=== PATIENT | male | born 1975 | race Caucasian/White ===

== ENCOUNTER 2022-04-12 07:35 | Outpatient (REF) | payer OTHER, SELFPAY ==
[2022-04-12 10:50] LABS: MANUAL DIFF FLAG NO
[2022-04-12 10:56] LABS: Basophils Percent Auto 0.3 % (0-2); Eosinophils Absolute Auto 0.2 X10*3/uL (0.0-0.4); Eosinophils Percent Auto 2.1 % (0-4); Hematocrit 46.3 % (42.0-52.0); Hemoglobin 14.6 g/dl (14.0-18.0); Imm Gran Abs Auto 0.03 X10*3/uL (0.00-0.03); Imm Gran Pct Auto 0.3 % (0.0-0.4); Lymphocytes Absolute Auto 2.1 X10*3/uL (1.2-4.9); Lymphocytes Percent Auto 19.7 % (20-40); Mean Corpuscular HGB Conc 31.5 g/dl (31.0-36.0); Mean Corpuscular Hemoglobin 26.3 pg (27.0-33.0); Mean Corpuscular Volume 83.3 fL (80.0-98.0); Monocytes Absolute Auto 0.7 X10*3/uL (0.1-1.2); Monocytes Percent Auto 6.5 % (2-11); Neutrophils Absolute Auto 7.6 x10*3/uL (2.0-8.3); Neutrophils Percent Auto 71.1 % (45-73); Platelet Count 253 X10*3/uL (160-400); Red Blood Count 5.56 X10*6/uL (4.60-5.80); Red Cell Distribution Width 13.4 % (11.0-16.0); White Blood Count 10.6 X10*3/uL (4.8-10.8)
[2022-04-12 11:05] LABS: Estimated Average Glucose 137 mg/dL; Hemoglobin A1c % 6.4 %
[2022-04-12 11:13] LABS: Alanine Aminotransferase 28 U/L (0-40); Albumin Level 4.2 g/dL (3.5-5.0); Alkaline Phosphatase 99 U/L (39-117); Anion Gap 15 (12-20); Aspartate Amino Transferase 17 U/L (5-37); Bilirubin Total 0.7 mg/dL (0.0-1.0); Blood Urea Nitrogen 19 mg/dL (9-16); Calcium 8.5 mg/dL (8.4-10.2); Carbon Dioxide 26 mmol/L (22-29); Chloride 103 mmol/L (96-108); Cholesterol 196 mg/dL; Estimated Glomerular Filt Rate > 60; Glucose Fasting 98 mg/dL (60-99); HDL Cholesterol 37 mg/dL; LDL Cholesterol Calculated 142 mg/dl; Potassium 4.4 mmol/L (3.3-5.1); Sodium 140 mmol/L (135-145); Triglycerides 87 mg/dL
[2022-04-12 11:29] LABS: Thyroid Stimulating Hormone 1.44 uIU/mL (0.32-4.0)
[2022-04-12 11:43] LABS: Creatinine Urine 294.71 mg/dL; Microalbum/Creatinine Ratio Ur 3.7 ug/mg cr
== END 2022-04-12 07:36 | disposition home or self-care (01) ==
LOC: HO.10HDL 07:35
PROVIDERS: Visit Provider Internal Medicine
DX: Z00.00 Encounter for general adult medical examination without abnormal findings (principal); E11.9 Type 2 diabetes mellitus without complications; E78.00 Pure hypercholesterolemia, unspecified; R13.19 Other dysphagia
CPT/HCPCS: 36415; 80053; 80061; 82043; 83036; 84443; 85025

== ENCOUNTER 2022-07-26 09:17 | Outpatient (REF) | payer OTHER, SELFPAY ==
[2022-07-26 10:58] LABS: Estimated Average Glucose 126 mg/dL
[2022-07-26 10:59] LABS: Alanine Aminotransferase 25 U/L (0-40); Albumin Level 3.9 g/dL (3.5-5.0); Alkaline Phosphatase 107 U/L (39-117); Anion Gap 14 (12-20); Aspartate Amino Transferase 18 U/L (5-37); Bilirubin Total 0.8 mg/dL (0.0-1.0); Blood Urea Nitrogen 13 mg/dL (9-16); Calcium 9.2 mg/dL (8.4-10.2); Carbon Dioxide 25 mmol/L (22-29); Chloride 107 mmol/L (96-108); Cholesterol 134 mg/dL; Estimated Glomerular Filt Rate > 60; Glucose Fasting 108 mg/dL (60-99); HDL Cholesterol 31 mg/dL; LDL Cholesterol Calculated 88 mg/dl; Potassium 4.1 mmol/L (3.3-5.1); Sodium 142 mmol/L (135-145); Total Protein 7.3 g/dL (6.5-8.0); Triglycerides 78 mg/dL
== END 2022-07-26 09:18 | disposition home or self-care (01) ==
LOC: HO.10HDL 09:17
PROVIDERS: Visit Provider Internal Medicine
DX: E11.9 Type 2 diabetes mellitus without complications (principal); E66.01 Morbid (severe) obesity due to excess calories; E78.00 Pure hypercholesterolemia, unspecified; I10 Essential (primary) hypertension
CPT/HCPCS: 36415; 80053; 80061; 83036

== ENCOUNTER → 2022-09-07 14:33 | Outpatient (BNVA) | payer OTHER, SELFPAY | PROVIDERS: Visit Provider Physician Assistant ==

== ENCOUNTER 2022-10-12 12:40 | Outpatient (AMB) | payer OTHER, SELFPAY ==
--- NOTE | 2022-10-12 12:46 | A.OFFVIS_ITS ---
Intake VS Expanded 10/12/22 12:53 Height 5 ft 9 in Weight 328 lb BMI 48.4 BP 143/92 H Blood Pressure Location Rt brachial Blood Pressure Position Sitting Pulse 73 Pulse Source Pulse Oximeter Temp 96.9 F Temperature Source Tympanic Pulse Oximetry 93 Oxygen Delivery Method Room Air Body Fat 140.0 Body Fat Percentage 42.7 Free Fat Mass 187.8 Muscle Mass 178.6 Visceral Mass 29.0 Water Mass 139.2 BMR 2,678 Intake Visit Reasons: (OV) RIGHT OF WAY AGENT BMI 48.8 SWL Supply Chain Assistant Required: Yes Supply Chain Assistant Language: Manager Logistic Name: KOBY ALFONSO Allergies No Known Allergies Allergy (Verified 10/12/22 12:58) Medication List - Last Reconciled 10/12/22 by SMITH Harding atorvastatin 20 mg PO BEDTIME ibuprofen 600 mg PO Q6H PRN metformin ER 500 mg PO BID omeprazole 40 mg PO DAILY HPI HPI Comments History of Present Illness Details Pt is here to start the [facility] [place] [place] Weight Management surgical weight loss program. He heard about our program from his friend and his PCP. His goal is to lose weight and achieve a healthy lifestyle as well as to improve, if not resolve, obesity related medical conditions, including HLD. He reports first being concerned about his weight 2-3 years ago, highest weight to date was 328. Current weight is 328 pounds with a BMI of 48.4. He has tried multiple methods of weight loss including fad diets without permanent results. He lives with family. 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 He wakes at:?[place], and goes to bed at?5 pm. Dinner is at 4 pm. Breakfast: sandwich, eggs HB AM snack: crackers, protein bar -[employer] [place] granola bar Lunch: subway PM snack: skip Dinner: rice and beans and meat After dinner: skip or crackers Other snacks: cake, candy Liquids: 32 oz water, no soda, OJ/iced tea1-2 bottles per day. Alcohol/marijuana/tobacco intake: 6-7 beers 2 x per month, no cannabis, no tobacco Exercise: none, no gym membership, no exercise equipment in home. Could join a gym GERD score: 11 KOURTNEY score: 0 ESS score: 4 QOL score: 78 Review of Systems Const All systems reviewed & are unremarkable except as noted in HPI and below Physical Exam Vital Signs: Last Vital Signs Temp 96.9 F 10/12/22 12:53 Pulse 73 10/12/22 12:53 BP 143/92 H 10/12/22 12:53 Pulse Ox 93 10/12/22 12:53 Oxygen Delivery Method Room Air 10/12/22 12:53 BMI result Body Mass Index 48.4 Const General: cooperative, healthy appearing and no acute distress Orientation/consciousness: patient oriented x3 HEENT Head: Yes normal to inspection Ears: hearing grossly normal bilaterally General nose exam: Normal external nose present Face and sinus: Yes normal facial exam Eyes General: appearance normal, both eyes and all related structures Resp Effort & Inspection: normal respiratory effort Auscultation: clear to auscultation bilaterally Cardio Rate: regular rate Rhythm: regular rhythm Heart sounds: S1 normal heart sound present and S2 normal heart sound present GI Inspection: Yes normal to inspection, No distended and Yes obesity Palpation (GI): Soft to palpation, nontender and no guarding Auscultation: normal bowel sounds Skin General skin exam: no rashes or lesions noted Neuro General: patient oriented x3 Extrem General: No edema Psych Appearance: grossly normal Mental Status: mental status grossly normal Speech and movement: Normal speech and movement present Affect: normal affect Attitude: cooperative Assessment & Plan Assessment & Plan (1) Morbid obesity: Code(s): E66.01 - Morbid (severe) obesity due to excess calories Plan: This is a?47 yo male who will start our SWL program to prepare for bariatric surgery.? Blood work, h pylori , CXR, ECG, Abd US and UGI have been ordered. He is being scheduled for RD and BH initial consultations. He will start SWL classes and watch the first three videos before his next appointment. ? Adequate sleep of 7-8 hours per night discussed, awakening at midnight and going to bed around 5 pm ? You already have a body composition scale so please be sure and check weight weekly. The best time to do this is first thing in the morning after going to the bathroom. 1. Nutritional counseling: Be sure to careful read the number of scoops per shake Start with 3 Premier Protein shakes ([employer], [employer], [employer]), (1 scoop in 8 oz low fat unsweetened almond milk or water each) First shake, (1 scoop in 8 oz low fat unsweetened almond milk or water) at 1am- 3am, Second shake, (2 scoops in 8 oz low fat unsweetened almond milk or water) at 5am-7am 1 protein bar (Zone Perfect bars at [employer], [employer], or [employer]) at 9am-11am. Another shake, (1 scoop in 8 oz low fat unsweetened almond milk or water) at 1pm-3pm. Dinner at 4pm (12 forks of protein and 12 forks of salad/vegetables). Meal to include lean meat (beef, fish, pork, turkey, chicken), cooked vegetables or a salad with olive oil and/or fruits (berries, pears, apples, kiwi). Avoid salt, breads, potatoes, rice, pasta, desserts. Try to drink 64 oz of water daily and avoid soda and juices. ?2. Each shake would be drunk slowly, like coffee in a period of 2 hours. ?3. Cut each bar in 4 pieces and eat each piece in 30 min ?to make each bar last 2 hours. ?4. I emphasized the importance of measuring accurately the food portion and measure it carefully when serving the food on the plate ?5. The meal portions include 12 full-size forks of meat and 12 full-size forks of salad. You always eat the meat portion but you can replace up to half of the forks of salad/vegetables with rice, potatoes or pasta, or a fruit ?if you like. The less you do it the better weight loss will be. ?6. One full-size fork is what can be scooped on the fork without falling aside and not what can be bit with the fork. Use regular forks like those you find in a typical restaurant. ?7.? Please send me weight measurements as soon as possible and then once a week. Always include your diet and exercise plan. Alternatively come weekly at the office for weight checks and send me the measurements. ?8. Exercise counseling: Begin by watching a stretching for beginners video. Start slowly and begin to stretch your muscles. You should do this before and after each exercise session to prevent injury. Please join [employer] gym near your home. Ask the software design manager or one of the trainers how to use the machines if you are unfamiliar with them. Start elliptical with a resistance of 2. Increase resistance by 1 every 3 min to your most comfortable resistance with a max resistance of 8. Reduce the resistance by 1 every 3 minutes back down to 2 and repeat cycles for 300 calories. Alternatively, start treadmill with a speed of 3.0 and incline of 0, increasing incline by 1 every 3 minutes to the highest comfortable level (max 6 for now) then decrease in the same fashion. Repeat process to a goal of 300 calories. Goal of 2000 calories burned or more weekly. You may also consider use of the stationary bike. The easiest would be to chose the fat-burn or interval training program on the machine and do this until you reach the 300 calorie goal. Alternatively, you can manually adjust the resistance in a similar fashion as mentioned above, (resistance of 2-8 with a goal speed of 12 mph). Tracking calories is essential. 9. Alternatively start walking outside daily, tracking calories with a goal of 300 calories per day, daily. You can download the jana boo-box which can track your time, distance and calories while walking outside. You press start in the jana when you start and then stop when you are finished. 10.? It is important to communicate by text weekly 11. Please get labs, EKG and chest X-Ray within 1 week. 12. Discussed and answered all questions regarding?obtained consent to participate in the [place] [facility]?Registry. 13. Please follow the diet plan exactly, without any change. If you do not like something about the plan or you feel hungry, you need to communicate with me so I can help you revise the plan. You should not change the plan yourself. Text me at [phone] 14. Goal is to lose at least 12 pounds in the first month 15. Goal is to lose 10% of your weight before surgery, which is about 32 lbs. Ultimate weight goal: 296 lbs before surgery 16. When you have your upper endoscopy by Dr Kuhn on 11/02/22, please ask him to take biopsy for H. Pylori and fax results to our office. Patient is morbidly obese and is not considered stable at this time.?I spent a total of 70 minutes reviewing/updating records, examining the patient and counseling the patient on weight management as detailed above. Orders: Orders Vitamin B12 and Folate Today E66.01 - Morbid (severe) obesity due to excess calories, E78.00 - Pure hypercholesterolemia, unspecified Comprehensive Met. Panel Today E66.01 - Morbid (severe) obesity due to excess calories, E78.00 - Pure hypercholesterolemia, unspecified C Reactive Protein Today E66.01 - Morbid (severe) obesity due to excess calories, E78.00 - Pure hypercholesterolemia, unspecified Ferritin Today E66.01 - Morbid (severe) obesity due to excess calories, E78.00 - Pure hypercholesterolemia, unspecified Hemoglobin A1c Today E66.01 - Morbid (severe) obesity due to excess calories, E78.00 - Pure hypercholesterolemia, unspecified Insulin Today E66.01 - Morbid (severe) obesity due to excess calories, E78.00 - Pure hypercholesterolemia, unspecified IRON PROFILE Today E66.01 - Morbid (severe) obesity due to excess calories, E78.00 - Pure hypercholesterolemia, unspecified Lipid Panel Today E66.01 - Morbid (severe) obesity due to excess calories, E78.00 - Pure hypercholesterolemia, unspecified PTHI Today E66.01 - Morbid (severe) obesity due to excess calories, E78.00 - Pure hypercholesterolemia, unspecified TSH reflex Free T4 Today E66.01 - Morbid (severe) obesity due to excess calories, E78.00 - Pure hypercholesterolemia, unspecified Vitamin A Today E66.01 - Morbid (severe) obesity due to excess calories, E78.00 - Pure hypercholesterolemia, unspecified Vitamin B1 Today E66.01 - Morbid (severe) obesity due to excess calories, E78.00 - Pure hypercholesterolemia, unspecified Vitamin D 25-OH Total Today E66.01 - Morbid (severe) obesity due to excess calories, E78.00 - Pure hypercholesterolemia, unspecified Zinc Today E66.01 - Morbid (severe) obesity due to excess calories, E78.00 - Pure hypercholesterolemia, unspecified ECG 12 lead EKG Today E66.01 - Morbid (severe) obesity due to excess calories, E78.00 - Pure hypercholesterolemia, unspecified FL upper GI w air Today E66.01 - Morbid (severe) obesity due to excess calories, E78.00 - Pure hypercholesterolemia, unspecified Complete Blood Count Auto Diff Today E66.01 - Morbid (severe) obesity due to excess calories, E78.00 - Pure hypercholesterolemia, unspecified H Pylori Breath Test Today E66.01 - Morbid (severe) obesity due to excess calories, E78.00 - Pure hypercholesterolemia, unspecified US abdomen comp w elastography Today E66.01 - Morbid (severe) obesity due to excess calories, E78.00 - Pure hypercholesterolemia, unspecified XR chest 2V Today E66.01 - Morbid (severe) obesity due to excess calories, E78.00 - Pure hypercholesterolemia, unspecified Referrals Behavioral Health Referral E66.01 - Morbid (severe) obesity due to excess calories, E78.00 - Pure hypercholesterolemia, unspecified Nutrition/Dietitian Referral E66.01 - Morbid (severe) obesity due to excess calories, E78.00 - Pure hypercholesterolemia, unspecified Coding Level of Care Code New Pt Level 5 (85664) Diagnoses Morbid obesity E66.01 Time Spent (min) 70
[2022-10-12 12:53] VITALS: BP 143/92; PULSE 73; TEMP 36.1; O2SAT 93; BMI 48.4
== END 2022-10-12 14:53 | disposition home or self-care (01) ==
PROVIDERS: Visit Provider Physician Assistant Surgical
DX: E66.01 Morbid (severe) obesity due to excess calories (principal); Z68.42 Body mass index [BMI] 45.0-49.9, adult
CPT/HCPCS: 99205

== ENCOUNTER → 2022-10-12 12:40 | Outpatient (BNVA) | payer OTHER, SELFPAY | PROVIDERS: Visit Provider Physician Assistant Surgical ==

== ENCOUNTER 2022-10-28 08:17 | Outpatient (REF) | payer OTHER, SELFPAY ==
--- NOTE | ~2022-10-28 | XR_ITS ---
EXAMINATION: XR CHEST CLINICAL INFORMATION: Reason for Exam E66.01 - Morbid (severe) obesity due to excess calories COMPARISON: None TECHNIQUE: 2 views of the chest FINDINGS: Lines and tubes: None. Clear lungs. No pleural effusion. No pneumothorax. Normal cardiomediastinal silhouette. XR/XR chest 2V IMPRESSION: * Clear lungs.
--- NOTE | 2022-10-28 08:22 | ECG_ITS ---
Test Reason : e66.01 Blood Pressure : / mmHG Vent. Rate : 061 BPM Atrial Rate : 061 BPM P-R Int : 174 ms QRS Dur : 096 ms QT Int : 414 ms P-R-T Axes : 048 015 023 degrees QTc Int : 416 ms Normal sinus rhythm Normal ECG No previous ECGs available Referred By: Amrit Zambrano Electronically Signed By:JUANITO FORD
[2022-10-28 08:55] LABS: MANUAL DIFF FLAG NO
[2022-10-28 10:31] LABS: Basophils Percent Auto 0.3 % (0-2); Eosinophils Absolute Auto 0.1 X10*3/uL (0.0-0.4); Eosinophils Percent Auto 1.4 % (0-4); Hematocrit 45.5 % (42.0-52.0); Hemoglobin 14.5 g/dl (14.0-18.0); Imm Gran Abs Auto 0.04 X10*3/uL (0.00-0.03); Imm Gran Pct Auto 0.4 % (0.0-0.4); Lymphocytes Absolute Auto 1.6 X10*3/uL (1.2-4.9); Lymphocytes Percent Auto 17.6 % (20-40); Mean Corpuscular HGB Conc 31.9 g/dl (31.0-36.0); Mean Corpuscular Hemoglobin 26.3 pg (27.0-33.0); Mean Corpuscular Volume 82.4 fL (80.0-98.0); Mean Platelet Volume 10.2 fL (9.4-12.4); Monocytes Absolute Auto 0.6 X10*3/uL (0.1-1.2); Monocytes Percent Auto 6.3 % (2-11); Neutrophils Absolute Auto 6.6 x10*3/uL (2.0-8.3); Platelet Count 263 X10*3/uL (160-400); Red Blood Count 5.52 X10*6/uL (4.60-5.80); Red Cell Distribution Width 13.3 % (11.0-16.0)
[2022-10-28 10:40] LABS: Estimated Average Glucose 123 mg/dL; Hemoglobin A1C 135.2478 umol/L; Hemoglobin A1c % 5.9 % (<6.0)
[2022-10-28 11:13] LABS: Alanine Aminotransferase 53 U/L (0-40); Albumin Level 4.3 g/dL (3.5-5.0); Alkaline Phosphatase 95 U/L (39-117); Anion Gap 13 (12-20); Aspartate Amino Transferase 35 U/L (5-37); Bilirubin Total 0.6 mg/dL (0.0-1.0); Blood Urea Nitrogen 17 mg/dL (9-16); C Reactive Protein 2.58 mg/dL (< or = 0.50); Calcium 9.4 mg/dL (8.4-10.2); Carbon Dioxide 25 mmol/L (22-29); Chloride 106 mmol/L (96-108); Cholesterol 130 mg/dL (<200); Estimated Glomerular Filt Rate > 60; Glucose Random 93 mg/dL (60-115); HDL Cholesterol 23 mg/dL (>40); Iron 52 mcg/dL (45-160); LDL Cholesterol Calculated 94 mg/dL (<100); Percent Iron Saturation 18 % (15-50); Potassium 3.9 mmol/L (3.3-5.1); Sodium 140 mmol/L (135-145); Total Iron Binding Capacity 284 mcg/dL (228-428); Total Protein 7.7 g/dL (6.5-8.0); Triglycerides 68 mg/dL (<150); Unsaturated Iron Binding 232 ug/dL
[2022-10-28 11:29] LABS: Folate 10.2 ng/mL (> or = 4.0); Vitamin B12 473 pg/mL (200-900)
[2022-10-28 11:31] LABS: Ferritin 185 ng/mL (20-250); Insulin 25 uU/mL (2-29); TSH reflex Free T4 0.85 uIU/mL (0.32-4.0); Vitamin D 25-OH Total 23.6 ng/mL (>30)
[2022-10-31 14:38] LABS: Calcium (PTHI) 9.4 mg/dL (8.6-10.3); PTHI 50 pg/mL (16-77)
[2022-11-01 03:34] LABS: Zinc 76 mcg/dL (60-130)
[2022-11-04 17:13] LABS: Vitamin B1 <6 nmol/L (8-30)
== END 2022-10-28 08:18 | disposition home or self-care (01) ==
LOC: HO.XRAY 08:17
PROVIDERS: PCP Internal Medicine; Visit Provider Physician Assistant Surgical
DX: E66.01 Morbid (severe) obesity due to excess calories (principal); E78.00 Pure hypercholesterolemia, unspecified
CPT/HCPCS: 36415; 71046; 80053; 80061; 82306; 82607; 82728; 82746; 83036; 83525; 83540; 83970; 84425; 84443; 84590; 84630; 85025; 86140; 93005; 97802

== ENCOUNTER 2022-10-28 12:53 | Outpatient (AMB) | payer OTHER, SELFPAY ==
--- NOTE | 2022-10-28 13:13 | MHC.AMNUTRGE ---
Intake Intake Visit Reasons: (TV) Initial Nutrition SWL Private Branch Exchange Service Adviser Required: Yes Private Branch Exchange Service Adviser Name: Kenna [id number] Information Interpreted: non-clinical & clinical Allergies No Known Allergies Allergy (Verified 10/12/22 12:58) HPI Nutrition Presentation Reason for consult elevated BMI Diet Assmnt Details He enjoys the bars and the shakes, using premier protein shakes and Zone perfect bars 1 scoop powder and 8oz almond milk unsweetened 2 scoops in water 1 scoop in water salad, vegetables, meat Example last might ate ribs (eats once per week) educated pt on lean proteins, sent recipe book in [facility] as well. pt shared with staff he was very nervous for todays appt. superintendent drivers, mainly in [facility] Did not have time today to tlak about classes or exercise Dietary counseling reduction Who buys your food self Who prepares/cooks your food self Meal frequency regular: lunch (sandwich at subway, rice, beans meat ), dinner and snacks Lifestyle Eating out 4 or more times/week Food frequency Fruit: daily, Vegetables: daily, Grains/pasta/breads/cereal (carbs): daily, Meats/poultry/fish (protein): daily, Meat substitutes/nuts/seeds/legumes: daily, Processed foods/meats: daily, Restaurants/fast foods: several times weekly, Desserts/sweets: daily (desserts, biscuits ), Water: daily, Soda: never, Juice: daily and Coffee: daily Diagnosis Nutrition problem #1 overweight/obesity As related to (etiology) #1 excess energy intake and physical inactivity As evidenced by (sign/symptom) #1 high BMI Monitoring/Goals Nutrition problem monitoring total energy intake, level of knowledge/skill, total PRO intake, total CHO intake and weight Outcome progress progressing Learning/Education Readiness to learn good Stages of change action Educational materials provided Yes Most Recent Diabetes Results: Microalb/Creat Ratio 3.7 ug/mg cr 04/12/22 Cholesterol 130 mg/dL (<200) 10/28/22 HDL Cholesterol 23 mg/dL (>40) L 10/28/22 Triglycerides 68 mg/dL (<150) 10/28/22 Creatinine 0.79 mg/dL (0.5-1.4) 10/28/22 Blood Urea Nitrogen 17 mg/dL (9-16) H 10/28/22 Sodium 140 mmol/L (135-145) 10/28/22 Potassium 3.9 mmol/L (3.3-5.1) 10/28/22 Chloride 106 mmol/L (96-108) 10/28/22 Carbon Dioxide 25 mmol/L (22-29) 10/28/22 Calcium 9.4 mg/dL (8.4-10.2) 10/28/22 AST 35 U/L (5-37) 10/28/22 ALT 53 U/L (0-40) H 10/28/22 Total Protein 7.7 g/dL (6.5-8.0) 10/28/22 Albumin 4.3 g/dL (3.5-5.0) 10/28/22 Assessment & Plan Assessment & Plan (1) Morbid obesity: Code(s): E66.01 - Morbid (severe) obesity due to excess calories Patient Instructions: pt is doing very well. he will continue with his plan. we talked about doing 2 shakes with 2 scoops each on the days he wakes up late and misses the first. Will follow up again 12/01 3pm TV Telehealth Telehealth Location of provider rendering services: practice address Location of patient: address on file Patient Identification confirmed using: Name, : Yes Telehealth method: voice only Patient verbally consented to treatment: Yes Patient verbally consented to billing insurance company: Yes Patient informed of any privacy concerns related to visit: Yes Minutes spent on Phone/Video with Pt.: 45 Coding Level of Care Code Nutr Indiv Intake (51800) Diagnoses Morbid obesity E66.01 Time Spent (min) 45
== END 2022-10-28 13:43 | disposition home or self-care (01) ==
PROVIDERS: Referring Provider Physician Assistant Surgical; Visit Provider Dietitian, Registered
DX: E66.01 Morbid (severe) obesity due to excess calories (principal)

== ENCOUNTER 2022-10-31 13:29 | Outpatient (REF) | payer OTHER, SELFPAY ==
[2022-11-04 21:43] LABS: Vitamin A 27 mcg/dL (38-98)
== END 2022-10-31 13:30 | disposition home or self-care (01) ==
LOC: HO.LAB 13:29
PROVIDERS: PCP Internal Medicine; Visit Provider Physician Assistant Surgical
DX: E66.01 Morbid (severe) obesity due to excess calories (principal); E78.00 Pure hypercholesterolemia, unspecified
CPT/HCPCS: 36415; 84590

== ENCOUNTER 2022-11-02 06:53 | Day surgery (SDC) | payer OTHER, SELFPAY ==
--- NOTE | 2022-11-01 09:10 | P.CONAN_ITS ---
Documented by User: Stephanie Tarango NP 11/01/22 09:11 HPI - Anesthesia Eval Consult details Narrative: 47yo M for Upper Endoscopy with Balloon Dilitation, Colonoscopy PMF Active Problems Active Problems: All Active Problems (Updated 11/01/22 @ 06:52 by Erin Rai RN) Asthma (Acute) Hypercholesterolemia (Acute) Morbid obesity (Acute) Past Medical History Medical History (Updated 11/02/22 @ 07:49 by Razia Gutierrez RN) GERD (gastroesophageal reflux disease) Hyperlipidemia Asthma Surgical History Surgical History (Updated 11/02/22 @ 08:33 by Razia Gutierrez RN) Hx of wisdom tooth extraction Social History Social History Patient Tobacco Use Status: Never used Tobacco Are you DNR?: No Advance Directives: No Advance Directives Information Provided: Yes Recently lost weight without trying: No Nutrition Risks: No Nutritional Risk Meds Allergies Allergy/AdvReac Type Severity Reaction Status Date / Time Penicillins Allergy Unknown Verified 11/02/22 07:08 seafood Allergy Unknown Verified 11/02/22 07:08 Home Medications Medication Instructions Recorded Confirmed Last Taken Type atorvastatin 20 mg tablet 20 mg PO BEDTIME 10/12/22 11/02/22 Unknown History ibuprofen 600 mg tablet 600 mg PO Q6H PRN Pain, Mild 10/12/22 11/02/22 10/17/22 History metformin 500 mg tablet,extended 500 mg PO BID 10/12/22 11/02/22 Unknown History release 24 hr omeprazole 40 mg capsule,delayed 40 mg PO DAILY 10/12/22 11/02/22 Unknown History release Exam Exam Date and Time: November 01, 2022 0910 Pertinent Lab Results Pertinent Lab Results: Laboratory Tests 10/28/22 08:50 WBC 9.0 Hgb 14.5 Hct 45.5 Plt Count 263 Sodium 140 Potassium 3.9 Chloride 106 Carbon Dioxide 25 BUN 17 H Creatinine 0.79 Narrative Narrative: EKG 10/2022 Vent. Rate : 061 BPM Atrial Rate : 061 BPM P-R Int : 174 ms QRS Dur : 096 ms QT Int : 414 ms P-R-T Axes : 048 015 023 degrees QTc Int : 416 ms Normal sinus rhythm Normal ECG No previous ECGs available Assessment and Plan Assessment Anesthesia Assessment: Chart Reviewed Documented by User: Barrington Rojas MD 11/02/22 08:58 [facility] Past Medical History Medical History (Updated 11/02/22 @ 07:49 by Razia Gutierrez RN) GERD (gastroesophageal reflux disease) Hyperlipidemia Asthma Family History Family history of problems with anesthesia: No Surgical History Surgical History (Updated 11/02/22 @ 08:33 by Razia Gutierrez RN) Hx of wisdom tooth extraction History of Problems with Anesthesia: No Social History Social History Patient Tobacco Use Status: Never used Tobacco Are you DNR?: No Advance Directives: No Advance Directives Information Provided: Yes Recently lost weight without trying: No Nutrition Risks: No Nutritional Risk Meds Allergies Allergy/AdvReac Type Severity Reaction Status Date / Time Penicillins Allergy Unknown Verified 11/02/22 07:08 seafood Allergy Unknown Verified 11/02/22 07:08 Home Medications Medication Instructions Recorded Confirmed Last Taken Type atorvastatin 20 mg tablet 20 mg PO BEDTIME 10/12/22 11/02/22 Unknown History ibuprofen 600 mg tablet 600 mg PO Q6H PRN Pain, Mild 10/12/22 11/02/22 10/17/22 History metformin 500 mg tablet,extended 500 mg PO BID 10/12/22 11/02/22 Unknown History release 24 hr omeprazole 40 mg capsule,delayed 40 mg PO DAILY 10/12/22 11/02/22 Unknown History release Exam Airway Mallampati Class: I TM Dist: >3cm Neck ROM: Limited Heart: rrr Lungs: cta Assessment and Plan Assessment Anesthesia Assessment: Anesthesia Plan Discussed Final Anesthetic Review Family History of Problems with Anesthesia: No History of Problems with Anesthesia: No NPO: Yes ASA Class: III Final Preanesthetic Review: No Changes in Pt Med Stat, Meds/Allgs Chart Reviewed, Consent Obtained/Reviewed and Anes Risks/Benef Reviewed Patient Risk: Intermediate Procedure Risk: Intermediate Assessment/Block/Sedation in SS: Assess/Block/Sedation-SS Anesthetic Plan Anesthetic Plan: MAC: and Agree w/ Assess. and Plan Disposition: Standard PACU
[2022-11-02 07:35] VITALS: BMI 48.1
[2022-11-02 07:55] VITALS: BP 127/83; PULSE 62; RESP 20; TEMP 36.1; O2SAT 97
[2022-11-02] MEDS: Lactated Ringers 1,000 ML 100 ML IVCONT (08:07)
--- NOTE | 2022-11-02 10:14 | P.BOP_ITS ---
Brief Operative Note Date of Service: 11/02/22 Pre-op diagnosis: GERD, Dysphagia, Screening Post-op diagnosis: other (Colon polyps, Duodenitis, Gastritis, Hiatal hernia, GERD) Procedure: Colonoscopy to the cecum with bx/removal of polyps, EGD with biopsies and Balloon Dilation with an 18 to 19 to 20mm balloon Surgeon: Emanuel Kuhn Anesthesia: MAC Was an Professor Of Poultry Science used for this Procedure?: No Estimated blood loss (mL): 2.0 Pathology: other (A. Transverse colon polyp B. Polyp at 20cm C. Gastric antrum D. EG Junction at 38cm) Condition: stable Disposition: PACU
[2022-11-02 10:15] VITALS: BP 128/82; PULSE 55; RESP 16; TEMP 36.1; O2SAT 97
[2022-11-02 10:30] VITALS: BP 128/82; PULSE 59; RESP 17; TEMP 36.7; O2SAT 97
--- NOTE | 2022-11-02 10:43 | OP_ITS ---
DATE OF SERVICE: 11/02/2022 SURGEON: Emanuel Kuhn MD INDICATIONS: The patient presents for evaluation of gastroesophageal reflux, dysphagia, and colorectal cancer screening. Full consent has been obtained from him for both procedures, including risks of bleeding and perforation. PREOPERATIVE DIAGNOSIS: POSTOPERATIVE DIAGNOSIS: PROCEDURE PERFORMED: Esophagogastroduodenoscopy with biopsies and balloon dilation, and colonoscopy to the cecum with biopsy and removal of polyps. ESTIMATED BLOOD LOSS: COMPLICATIONS: ANESTHESIA: Monitored anesthesia care. ASSISTANTS: SPECIMENS: PREOPERATIVE DIAGNOSES: Gastroesophageal reflux, dysphagia, colorectal cancer screening. POSTOPERATIVE DIAGNOSES: Gastroesophageal reflux, dysphagia, colorectal cancer screening, small colon polyps, internal hemorrhoids, duodenitis, gastritis, hiatal hernia, gastroesophageal reflux. DESCRIPTION OF PROCEDURE: The patient was placed in the left lateral decubitus position. The digital rectal exam revealed no abnormalities. The Olympus video pediatric colonoscope was entered into the rectum and advanced easily to the cecum. Once in the cecum, I did identify normal-appearing cecal pouch with appendiceal orifice and a normal-appearing ileocecal valve. The entire cecum and ileocecal valve appeared normal. The scope was slowly withdrawn assessing all mucosal surfaces carefully. Preparation was excellent. In the transverse colon and at 20 cm were less than 5 mm polyps, which were each biopsied and completely removed with a cold biopsy forceps. I did not visualize any other polyps, colitis, nor angiodysplasia. In the rectum, scope was retroflexed visualizing small internal hemorrhoids, but no other pathology. The rectal mucosa appeared normal. The scope was straightened and withdrawn from the patient. He was then turned around for the upper endoscopy. The Olympus video gastroscope was passed in the posterior oropharynx and upper esophagus under direct vision. The scope was passed slowly into the distal esophagus. The gastroesophageal junction appeared at 38 cm. There was some slight irregularity consistent with reflux but no evidence of any esophagitis nor definitive [place] mucosa. There was no evidence of any stricture. The scope entered the stomach. There was a small hiatal hernia. The scope was advanced to the pylorus, and the duodenum was cannulated to the descending portion. There was a mild duodenitis in the duodenal bulb, but otherwise the duodenum appeared normal to the 2nd and 3rd portions. The scope was withdrawn back in the stomach. The gastric antrum had some areas of gastritis with edema and erythema, but no erosions nor ulceration. There was good peristalsis. Biopsies were obtained from the gastric antrum. The scope was retroflexed visualizing the proximal stomach carefully, which appeared normal, without any sign of mass or ulceration. The scope was straightened. The scope was withdrawn back to the esophagus. Given his symptomatology, I did use a [employer] incremental balloon to dilate the gastroesophageal junction from 18 mm to 19 mm to 20 mm at the recommended pressures for between 30 and 60 seconds each. Post dilation, there was a small amount heme noted but no real disruption of the gastroesophageal junction. I did obtain biopsies at the GE junction as well. Proximal to 38 cm, the esophageal mucosa appeared normal. The scope was withdrawn from the patient. He tolerated both procedures well and was returned to the recovery area in stable condition. IMPRESSION: 1. Small hiatal hernia, gastroesophageal reflux. 2. Gastritis. 3. Duodenitis. 4. Colon polyps. 5. Internal hemorrhoids. PLAN: The results of the pathology will be checked. If the colon polyps are tubular adenomas, I would recommend a followup colonoscopy in 5 years. If they are both hyperplastic, I would recommend a followup coloscopy in 10 years. He was advised not to use any aspirin or NSAIDs for 1 week. He was advised to continue the current regimen of omeprazole 40 mg daily as he does report that is working well for him in regard to his reflux symptoms. He will see me on a p.r.n. basis but was advised to call sooner if there are any problems or questions. This has been discussed with his . MD RUFUS Muse/SHENG / [phone]
== END 2022-11-02 10:58 | disposition home or self-care (01) ==
PROVIDERS: PCP Internal Medicine; Visit Provider Internal Medicine
PROC: (CPT 45380; principal; 2022-11-02 08:40)
PROC: 0DJD8ZZ Inspection of Lower Intestinal Tract, Via Natural or Artificial Opening Endoscopic (ICD-10-PCS; CPT 45378; 2022-11-02 08:40)
DX: Z12.11 Encounter for screening for malignant neoplasm of colon (principal); K63.5 Polyp of colon; K64.8 Other hemorrhoids; R13.19 Other dysphagia; K21.9 Gastro-esophageal reflux disease without esophagitis; K29.50 Unspecified chronic gastritis without bleeding; K29.80 Duodenitis without bleeding; K44.9 Diaphragmatic hernia without obstruction or gangrene; E78.5 Hyperlipidemia, unspecified; J45.909 Unspecified asthma, uncomplicated; Z79.899 Other long term (current) drug therapy; Z79.84 Long term (current) use of oral hypoglycemic drugs; Z79.1 Long term (current) use of non-steroidal anti-inflammatories (NSAID); Z88.0 Allergy status to penicillin
CPT/HCPCS: 45380; 43249; 43239; 88305; 88342; C1726

== ENCOUNTER 2022-11-09 12:29 | Outpatient (AMB) | payer OTHER, SELFPAY ==
--- NOTE | 2022-11-09 13:17 | A.OFFVIS_ITS ---
Intake VS Expanded 11/09/22 13:32 BP 134/75 Blood Pressure Location Rt brachial Blood Pressure Position Sitting Pulse 67 Pulse Source Pulse Oximeter Temp 98.2 F Temperature Source Temporal Artery Scan Pulse Oximetry 98 Oxygen Delivery Method Room Air Height 5 ft 9 in Weight 308 lb 9.6 oz BMI 45.6 Body Fat % 44.2 Body Fat Mass 136.4 Fat Free Mass 172.2 Visceral Fat Rating 14.0 Body Water % 39.8 Body Water Mass 122.8 Muscle Mass/Score 163.4 Basal Metabolic Rate/Score 2,443 Intake Visit Reasons: (OV) F/U SWL Allergies Penicillins Allergy (Verified 11/09/22 13:30) Unknown seafood Allergy (Verified 11/09/22 13:30) Unknown HPI HPI Comments History of Present Illness Details The patient is a pleasant 47 year old male who returns to the clinic for pre-operative surgical weight loss management. They were last seen in the office on 10/12/22, recorded weight at that time was 328 pounds, with a BMI of 48.4. Today's weight is 308.6 pounds and BMI is 45.6. There has been a weight loss of 19.4 pounds since initiating the surgical weight loss program on 10/12/22 with a total body weight loss of 5.9 %. Pre op work up completed as follows: SWL classes:? 03/16 BH appts: 11/17/22 ? ? RD appts: f/u 12/01/22 Labs: 10/28/22-low A, B1, D, B12:473 H. pylori: not yet done CXR: 10/28/22-nad EK10/28/22-normal ABD U/S: 11/22/22 UGI: 12/22/22 The patient reports he was started on Losartan 50 mg daily by his pcp. He states he is concerned for low BP and states his BP is 130s/70s at home. He will discuss w his PCP. Does not love the bars Current meal plan includes: 3 [employer] Protein shakes ([employer], [employer], [employer]), (1 scoop in 8 oz low fat unsweetened almond milk or water each) First shake, (1 scoop in 8 oz low fat unsweetened almond milk or water) at 1am- 3am, Second shake, (1 scoops in 8 oz low fat unsweetened almond milk or water) at 5am-7am 1 protein bar ([employer] bars at [employer], [employer], or [employer]) at 9am-11am. Another shake, (1 scoop in 8 oz low fat unsweetened almond milk or water) at 1pm-3pm. Dinner at 4pm (12 forks of protein and 12 forks of salad/vegetables). Drinking 64-80 oz of water Current exercise plan includes: walking 2-3 x per week PFSH Medical History GERD (gastroesophageal reflux disease) Hyperlipidemia Asthma Surgical History Hx of wisdom tooth extraction Social History Alcohol intake: current Alcohol intake frequency: holidays/special occasions only Patient Tobacco Use Status: Never used Tobacco Review of Systems Const All systems reviewed & are unremarkable except as noted in HPI and below Physical Exam Vital Signs: Last Vital Signs Temp 98.2 F 11/09/22 13:32 Pulse 67 11/09/22 13:32 BP 134/75 11/09/22 13:32 Pulse Ox 98 11/09/22 13:32 Oxygen Delivery Method Room Air 11/09/22 13:32 BMI result Body Mass Index 45.6 Const General: healthy appearing and no acute distress Resp Effort & Inspection: normal respiratory effort Auscultation: clear to auscultation bilaterally Cardio Rate: regular rate Rhythm: regular rhythm GI Auscultation: normal bowel sounds Extrem General: Yes normal to inspection Assessment & Plan Assessment & Plan (1) Morbid obesity: Code(s): E66.01 - Morbid (severe) obesity due to excess calories Plan: Making good progress, Continue 3 shakes w 1 scoop each. He had decreased by 1 scoop on his own. Discussed not to do that. Plans on getting treadmill and will follow directions in original emal for that Reminded of upcoming apts RTC 3 weeks Coding Level of Care Code Est Pt Level 3 (16074) Diagnoses Morbid obesity E66.01
[2022-11-09 13:32] VITALS: BP 134/75; PULSE 67; TEMP 36.8; O2SAT 98; BMI 45.6
== END 2022-11-09 14:06 | disposition home or self-care (01) ==
PROVIDERS: Visit Provider Physician Assistant Surgical
DX: E66.01 Morbid (severe) obesity due to excess calories (principal)
CPT/HCPCS: 99213

== ENCOUNTER → 2022-11-09 12:29 | Outpatient (BNVA) | payer OTHER, SELFPAY | PROVIDERS: Visit Provider Physician Assistant Surgical ==

== ENCOUNTER 2022-11-22 08:48 | Outpatient (REF) | payer OTHER, SELFPAY ==
--- NOTE | ~2022-11-22 | US_ITS ---
EXAMINATION: US COMPLETE ABDOMEN WITH LIVER ELASTOGRAPHY CLINICAL INFORMATION: Morbid obesity. COMPARISON: None available. TECHNIQUE: Real-time imaging of the abdominal viscera. Noninvasive ultrasound liver fibrosis assessment is performed using Pro ElastPQ point quantification shear wave elastography (2D-SWE) with a C5-2 MHz transducer. Multiple elastography samples are obtained. FINDINGS: PANCREAS: Limited. The visualized pancreatic head and body are normal in appearance. The remainder of the pancreas is obscured from visualization by the overlying bowel gas. ABDOMINAL AORTA: The proximal, middle, and distal aortic segments are normal in caliber. INFERIOR VENA CAVA: Visualized portions are normal. LIVER: The liver demonstrates normal size, contour and increased echogenicity. No focal lesion or intrahepatic biliary duct dilatation. The right lobe measures 18.8 cm in length. The left lobe measures 10.1 cm in length. Portal flow is towards the liver (hepatopetal). Shear wave liver elastography median stiffness is 1.64 m/s (reference: normal median stiffness is 1.3 m/s or less). IQR/median stiffness to assess sampling precision is 0.10 (reference: good quality data set is IQR/median stiffness of 0.15 or less). GALLBLADDER: Normal. The gallbladder is physiologically distended without evidence of stones, sludge, polyps, wall thickening or pericholecystic fluid. COMMON BILE DUCT: Normal in caliber measuring 0.3 cm in diameter. RIGHT KIDNEY: Normal. No hydronephrosis. No renal calculi or focal parenchymal lesions. The kidney measures 10.6 cm in maximum dimension. LEFT KIDNEY: Normal. No hydronephrosis. No renal calculi or focal parenchymal lesions. The kidney measures 11.5 cm in maximum dimension. SPLEEN: Normal. The spleen measures 11.0 cm in maximum dimension. FREE FLUID: None. US/US abdomen comp w elastography IMPRESSION: 1. There is hepatomegaly. 2. There is generalized increase in hepatic echotexture, consistent with fatty infiltration or hepatocellular disease. Please correlate clinically. No focal hepatic mass or intrahepatic biliary dilatation is seen. 3. Liver elastography: In the absence of other known clinical signs, measurements rule out compensated advanced chronic liver disease. If there are known clinical signs, further testing may be needed for confirmation. 4. Technically limited ultrasound examination of the pancreatic tail. REFERENCE: Society of Radiologists in Ultrasound Liver Stiffness Thresholds (2020): LIVER STIFFNESS THRESHOLDS: *Liver Stiffness equal or less than 1.3 m/s: High probability of being normal. *Liver Stiffness less than 1.7 m/s: In the absence of other known clinical signs, rules out compensated advanced chronic liver disease. *Liver Stiffness 1.7-2.1 m/s: Suggestive of compensated advanced chronic liver disease but need further test for confirmation. *Liver Stiffness over 2.1 m/s: Rules in compensated advanced chronic liver disease. *Liver Stiffness over 2.4 m/s: Suggestive of clinically significant portal hypertension. QUALITY OF DATA SET: *IQR/Median value equal or less than 0.15 implies a quality data set. *IQR/Median value over 0.15 implies a poor quality data set. SIGNIFICANT CHANGE FROM PRIOR EXAM: Significant change if liver stiffness measurement is 10% or greater from prior exam. OTHER CONSIDERATIONS: The stage of liver fibrosis may be overestimated in the setting of acute hepatitis, liver inflammation, elevated liver function tests, hepatic vascular congestion, obstructive cholestasis, non-fasting state, and infiltrative diseases such as amyloidosis and lymphoma. In some patients with NAFLD, the liver stiffness thresholds for compensated advanced chronic liver disease may be lower. In causes other than viral hepatitis and NAFLD, liver stiffness thresholds are not well established.
== END 2022-11-22 08:49 | disposition home or self-care (01) ==
LOC: HO.US 08:48
PROVIDERS: PCP Internal Medicine; Visit Provider Physician Assistant Surgical
DX: E66.01 Morbid (severe) obesity due to excess calories (principal); E78.00 Pure hypercholesterolemia, unspecified
CPT/HCPCS: 76705; 76981

== ENCOUNTER 2023-04-07 07:29 | Outpatient (REF) | payer OTHER, SELFPAY ==
[2023-04-07 11:43] LABS: Estimated Average Glucose 120 mg/dL; Hemoglobin A1c % 5.8 % (<6.0)
[2023-04-07 12:01] LABS: Alanine Aminotransferase 17 U/L (0-40); Albumin Level 4.2 g/dL (3.5-5.0); Alkaline Phosphatase 95 U/L (39-117); Anion Gap 11 (12-20); Aspartate Amino Transferase 15 U/L (5-37); Bilirubin Total 0.7 mg/dL (0.0-1.0); Blood Urea Nitrogen 20 mg/dL (9-16); Calcium 9.4 mg/dL (8.4-10.2); Carbon Dioxide 29 mmol/L (22-29); Chloride 105 mmol/L (96-108); Cholesterol 167 mg/dL (<200); Estimated Glomerular Filt Rate > 60; Glucose Random 97 mg/dL (60-115); HDL Cholesterol 40 mg/dL (>40); LDL Cholesterol Calculated 115 mg/dL (<100); Sodium 141 mmol/L (135-145); Total Protein 7.5 g/dL (6.5-8.0); Triglycerides 60 mg/dL (<150)
[2023-04-07 12:05] LABS: Microalbum/Creatinine Ratio Ur 4.9 ug/mg cr (<30)
[2023-04-07 12:16] LABS: Vitamin B12 406 pg/mL (200-900)
== END 2023-04-07 07:30 | disposition home or self-care (01) ==
LOC: HO.10HDL 07:29
PROVIDERS: Visit Provider Internal Medicine
DX: E11.9 Type 2 diabetes mellitus without complications (principal); I10 Essential (primary) hypertension; J45.909 Unspecified asthma, uncomplicated; R63.4 Abnormal weight loss
CPT/HCPCS: 36415; 80053; 80061; 82043; 82570; 82607; 83036

== ENCOUNTER 2023-10-17 06:06 | Outpatient (REF) | payer OTHER, SELFPAY ==
[2023-10-17 07:51] LABS: Estimated Average Glucose 126 mg/dL; Hemoglobin A1C 150.9293 umol/L
[2023-10-17 08:12] LABS: Alanine Aminotransferase 21 U/L (0-40); Albumin Level 4.2 g/dL (3.5-5.0); Alkaline Phosphatase 92 U/L (39-117); Anion Gap 13 (12-20); Aspartate Amino Transferase 15 U/L (5-37); Bilirubin Total 0.5 mg/dL (0.0-1.0); Blood Urea Nitrogen 19 mg/dL (9-16); Calcium 9.4 mg/dL (8.4-10.2); Carbon Dioxide 27 mmol/L (22-29); Chloride 106 mmol/L (96-108); Cholesterol 134 mg/dL (<200); Estimated Glomerular Filt Rate > 60; Glucose Random 106 mg/dL (60-115); HDL Cholesterol 34 mg/dL (>40); LDL Cholesterol Calculated 85 mg/dL (<100); Potassium 4.3 mmol/L (3.3-5.1); Sodium 142 mmol/L (135-145); Total Protein 7.3 g/dL (6.5-8.0); Triglycerides 78 mg/dL (<150)
== END 2023-10-17 06:07 | disposition home or self-care (01) ==
LOC: HO.LAB 06:06
PROVIDERS: PCP Internal Medicine; Visit Provider Internal Medicine
DX: Z00.00 Encounter for general adult medical examination without abnormal findings (principal); E11.9 Type 2 diabetes mellitus without complications; E78.00 Pure hypercholesterolemia, unspecified; I10 Essential (primary) hypertension
CPT/HCPCS: 36415; 80053; 80061; 83036